=== PATIENT | female | born 1975 | race Caucasian/White ===

== ENCOUNTER 2021-02-24 09:23 | Day surgery (SDC) | payer OTHER, SELFPAY ==
--- NOTE | 2021-02-19 14:16 | EKG12_ITS ---
Test Reason : PRE OP Blood Pressure : / mmHG Vent. Rate : 090 BPM Atrial Rate : 090 BPM P-R Int : 154 ms QRS Dur : 138 ms QT Int : 376 ms P-R-T Axes : 054 144 015 degrees QTc Int : 459 ms Normal sinus rhythm Indeterminate axis Right bundle branch block Abnormal ECG Confirmed by MYRIAM TRAYLOR, FANTA ([id number]), story editor ANTONINA BARBOZA ([id number]) on 02/20/2021 1:49:08 PM Referred By: Huy Farah Confirmed By:FANTA MIGUEL MD
[2021-02-19 17:01] LABS: Hematocrit 45.6 % (37-47); Hemoglobin 14.2 g/dL (12.0-15.0); Mean Corp Hgb Conc 31.1 g/dL (32-36); Mean Corpuscular Hgb 27.4 pg (27.0-32.0); Mean Corpuscular Volume 87.9 fL (81-99); Mean Platelet Vol. 9.7 fl (6.2-12.0); Platelet Count 351 K/mm3 (150-450); RBC Distribution Width CV 13.4 % (11.6-14.6); RBC Distribution Width SD 43.2 fl (35.1-43.9); Red Blood Count 5.19 M/mm3 (4.2-5.4); White Blood Count 11.7 K/mm3 (4.4-11.0)
[2021-02-19 17:18] LABS: International Normalized Ratio 1.1; Partial Thromboplast Time 26.1 Seconds (24.1-36.2); Prothrombin Time (Protime)PT. 13.2 SECONDS (11.7-14.9)
[2021-02-19 17:38] LABS: Internal QC Validated? YES +Cl - CLEAR BKGD; Pregnancy, Serum, hCG Quali. NEGATIVE Negative
[2021-02-19 17:39] LABS: Creatinine, Serum 0.92 mg/dL (0.55-1.02); EST Glomerular Filtration Rate 70 mL/min (>60); Est Glom Filt Rate - Afr Amer 85 mL/min (>60)
--- NOTE | 2021-02-21 13:49 | HP.PCM_ITS ---
History and Physical Date of Admission: 02/24/21 Surgical History and Physical Elba Whitaker, a 46 year old female 0 0 1 0 4, presents for RAVH/BSO on January at 11:30am. -- Chronic Left Lower Quadrant Pain, Severe Dysmenorrhea; Symptomatic Uterine Fibroids -- LLQ discomfort worsening at times. LLQ pain which began Several years. Elba claims it started gradually and has been present Worsened since July. It occurs intermittantly. It is located in the LLQ of the abdomen. Elba characterizes it to be upwards to the back. Elba characterizes the quality cramping. Elba characterizes the quality aching. Severity is moderate and very concerned; Severity is worsening; It is relieved by control pills have helped slightly with the cramping. Associated signs and symptoms are Severe cramping last 2 weeks of cycle. Additional comments are: U/S shows multiple uterine fibroids with largest on left 8.4 cm. MEDICATIONS HISTORY: Patient is also takin. Aviane 0.1 mg-20 mcg tablet, One pill by mouth once a day 2. lisinopril 20 mg tablet, One pill by mouth once a day ALLERGIES: NKDA Infections - Chicken pox childhood Illnesses - no serious past illnesses Accidents - None Hospitalizations - see surgery Review of Systems: GENERAL - Denies fever, or chills SKIN - Denies skin changes EYES - Denies visual changes EARS - Denies difficulty hearing NOSE - Denies nasal congestion or bleeding MOUTH - Denies sore throat or difficulty swallowing NECK - Denies pain or swelling RESPIRATORY - Denies shortness of breath or wheezing CARDIOVASCULAR - Denies palpitations or chest pain GASTROINTESTINAL - Denies nausea, vomiting, diarrhea, constipation GENITOURINARY - Denies dysuria, frequency of urination, incontinence of urine MUSCULOSKELETAL - Denies joint or muscle pain NEUROLOGICAL - Denies localized numbness or weakness PSYCHIATRIC - Denies depression or anxiety ENDOCRINE - Denies heat or cold intolerance, weight loss or gain HEMATO-IMMUNOLOGIC - Denies excesive bleeding with cuts SOCIAL HISTORY: Alcohol Use - drinks occasionally Smoking - denies smoking Diet - no special diet Lifestyle - moderate stress lifestyle and Exercise - minimal Seat Belt Use - always Employer - [employer] Job Description - library director Illicit Drug Use - None Sexual Activity - Spouse-Sig Other Name - Denis Spouse-Sig Other Occupation - Dispatcher for [employer] Children Name(s) - Adopted 4 children Control - Aviane OCP FAMILY HISTORY: Mother: Colon polyps and DM II. Maternal Grandmother: Colon Cancer. MENSTRUAL HISTORY: LMP Known?- YesAmount/Duration - 5 to 7 days, Regularity - Regular, Frequency - 28 days, LMP - 02/08/21, Age Onset Menarche - 11 PAST PREGNANCIES: Total Pregnancies - 1; Full Term Pregnancies - 0; Premature - 0; Abortions, Induced - 0; Abortions, Spontaneous - 0; Ectopics - 1; Multiple Births - 0; Living Children - 4 SURGICAL HISTORY: 1. Appendectomy ; - 2. cholecystectomy ; - 3. Adnoidectomy ; - 4. Tubes in ears as child ; - 5. Left Salpingectomy 07/31 ; - 6. Patch on ear drum 2014 ; - PHYSICAL EXAM BP- 132/88 Sitting, Right arm, large cuff Weight- 298.56640 lbs Height- 69 inch BMI:44.0 CONSTITUTIONAL - NAD, well nourished, and well developed SKIN - No rash, lesions, or ulcers HEENT - Normocephalic, PERRLA, EOMI NECK - No nodes, no nuchal rigidity and thyroid normal size and texture LYMPH NODES - Palpation of lymph nodes in neck and groins within normal limits LUNGS - CTA x2 without wheezes, crackles or rales CARDIAC - Regular rate and rhythm without rubs, murmurs, or gallops BREAST - No dominant masses, no tenderness, no axillary adenopathy, no nipple discharge, no skin changes ABDOMEN - Without hepatosplenomegaly, distention, masses, rebound, or guarding; normal bowel sounds; no hernias EXTREMITIES - No edema or calf tenderness NEUROLOGICAL - Cranial nerves II-XII grossly intact PSYCHIATRIC - A and O to time, place, person, mood and affect External Genitial Vagina - non-tender without lesions Urethra/Urethral Meatus - non-tender Bladder - non-tender Vagina - vaginal schuster are pink and moist without loss of rugae and no evidence of atropy Cervix - without cervical motion tenderness and has normal size and features without evident lesions Uterus - nulliparous size 5 cm & wt 70 g Adnexa - clear without massess or tenderness and exam limited by habitus ASSESSMENT/PLAN: 1. Abdominal Pain,LLQ and Uterine Leiomyoma Unspec Fibroids that are large and symptomatic. Discussed treatment options and patient desires hysterectomy. We discussed options for hysterectomy including proceeding with robotic assisted vaginal hysterectomy versus laparotomy. Patient understands that it may be necessary to proceed with laparotomy should robotic surgery be unsuccessful. She understands that this would increase operative time, postoperative recovery time. Plan to proceed with RAVH/BSO. All questions were answered.
[2021-02-24] VITALS (12 sets, daily range): BP systolic 138–184; BP diastolic 85–95; PULSE 66–94; RESP 16; TEMP 36.1–37.1; O2SAT 98–100; BMI 44.0
[2021-02-24] MEDS: Gabapentin 600 MG Tablet PO (09:30)
[2021-02-24] MEDS: Lactated Ringers 1,000 ML 40 ML IV (10:05)
[2021-02-24] MEDS: Acetaminophen 500 MG Tablet 1000 MG PO ×2 (10:06→18:57)
--- NOTE | 2021-02-24 10:15 | SUR.PREOP ---
pt refused urine preg
[2021-02-24 10:41] LABS: Bedside Glucose 93 mg/dL (70-110)
--- NOTE | 2021-02-24 11:30 | HYST_PTH ---
PATIENT: ISHMAEL ABARCA LOC: [facility] [place] U#:[id number] AGE/SX: 46/F ROOM: RE02/24/[address]: Dr. Huy Farah MD : [id number] BED: DIS: 02/24/2021 SPEC #: [id number] RECD: 02/24/21 15:38 STATUS: ABI ZAMORANO #: [id number] VIV: 02/24/21 11:[address]: Huy Farah DEPT: SURGICAL PATHOLOGY RECD BY: Riana Denny ENTERED: 02/25/21 08:46 SP TYPE: HYSTERECT OTHR DR: Dr. Wade Kapoor MD Tissues: Uterus, NOS Procedures: Surgery Specimen Level V HEADER OPERATION: ERAS, robotic assisted vaginal hysterectomy, bilateral salpingo-oophorectomy PRE-OP DIAGNOSIS: Abdominal pain, LLQ and uterine leiomyoma TISSUE SUBMITTED: Cervix, uterus, bilateral fallopian tubes and ovaries MICROSCOPIC DIAGNOSIS Uterus, hysterectomy: Cervix ? minimal chronic inflammation and nabothian cysts. Endometrium ? proliferative endometrium. Myometrium ? leiomyomas. Right and left ovaries ? benign follicular cysts, corpus luteal cysts and corpora albicantia. Right and left fallopian tubes ? hemosalpiinx and hydrosalpinx. AM:yessi 02/26/2021 MICROSCOPIC DESCRIPTION Slides are reviewed. GROSS DESCRIPTION Received in fixative is one container labeled with the patient's name and designated uterus. The specimen consists of a morcellated uterus received in greater than 15 fragments and in aggregate weight 262 gm. The ectocervical fragment measures 4 cm in length and 2.5 cm in diameter. No mass lesions are seen. The endocervical segment measures 3 cm in length and is grossly unremarkable. Due to fragmentation, a distinct endometrial cavity is not identified. Multiple rubbery nodules and fragments of nodules are present in the container ranging in size from 1.5 to 6 cm. Serial sections of nodules reveal a whorled cut surface without areas of cyst formation or necrosis. The fallopian tubes and ovaries are attached to the largest fragment. The fallopian tubes are light hobson-yellow in color and similar in appearance. One ovary measures 3.5 x 2 x 1.5 cm. Serial sections of this ovary reveal a single fluid filled cyst measuring 5 mm. The other ovary measures 3 x 2 x 1.5 cm. Serial sections of this ovary reveal a single blood filled cyst measuring 2 cm in greatest dimension. The adjacent fallopian tube measures 6 cm in length and 0.4 cm in average diameter. A distinct femoral end is not identified. Drop Worker sections are submitted in ten cassettes as follows: 1 - ecto- and endocervix, 2-4 - endometrium and adjacent myometrium, 5 - largest myometrial nodule, 6 - second largest myometrial nodule, 7 - third largest myometrial nodule, 8 & 9 - one fallopian tube and adjacent ovary and paratubal cyst, 10 - the other ovary and fallopian tube. / AM:yessi 02/25/21 TC:1 CPT: 56099
[2021-02-24] MEDS: Ropivacaine 0.5% 30 ML Vial (12:13)
--- NOTE | 2021-02-24 14:53 | PCM.OPRPT ---
Report of Operation Date of Procedure: 02/24/21 Pre-Operative Diagnosis: Symptomatic Uterine Fibroids, Menorrhagia Post-Operative Diagnosis: Symptomatic Uterine Fibroids, Menorrhagia, Right Tubal Cyst Surgery/Procedure Performed:: Robotic assisted vaginal hysterectomy And Bilateral Salpingo-Oophorectomy Description of Surgical Findings:: 8 cm uterus with normal ovaries. 4 cm right fallopian tube cyst. 8 cm left fundal fibroid. Surgeon: Huy Farah branch service specialist: Jesse Manjarrez branch service specialist: Brittney Amaya Type of Anesthesia: General (Endotracheal) Anesthesiologist: Char Robles Specimen's removed: Uterus and bilateral fallopian tubes and ovaries Drains: Quick to straight drain Estimated Blood Loss (mL): 100 cc Fluids Replaced: Crystalloid Description of Procedure: Surgeon: Huy Farah MD, FACOG Indication: This is a 46 year old patient who has been having problems with symptomatic uterine fibroids and menorrhagia. Conservative measures have not been helpful. The patient has been counseled regarding the risks, benefits and alternatives of this procedure including the possibility of bleeding, infection, and injury to surrounding structures such as bowel bladder and all questions were answered. She understands that if BSO is needed that she may need to be on HRT for an indefinite period of time. Procedure: Pt taken to the operating room where, after induction of general anesthesia, the patient was prepped and draped in the usual sterile fashion and placed on a non-slip Huggy-u-vac device. Trendelenburg test was satisfactory. Bladder was drained of urine with a Quick catheter which was left in place. Anterior cervix grasped and cervix was dilated to about 3-4 mm. Uterus sounded to 9 cms. 0-Vicryl suture was placed at the 3:00 and 9:00 position of the cervix. A small [employer] Receptionist Uterine Manipulator was then placed in the uterus and attention was turned to the laparoscopic portion of the procedure. Ropivocaine 0.5% was injected approximately 2-3 cm superior to the umbilicus and an 8 mm robotic camera port was introduced directly with intraperitoneal placement confirmed with CO2 insufflation. 8 mm robotic side ports were introduced under direct visualization approximately 11 cm lateral and 2 cm inferior to the umbilical port. A 5 mm left upper quadrant port was introduced and airseal insufflation with CO2 was started. The above findings were noted. Robot was docked without difficulty and attention turned to the robotic portion of the procedure. Approximately 30 cc of Ropivicaine was used. Bilateral infundibulopelvic ligaments and mesosalpinx were ligated with 35 jeffrey bipolar coagulation to the level of the round ligament. The left salpinx was densely adhered to the left pelvic sidewall and was taken down with sharp and blunt dissection. The right fallopian tube was approximately 4 cm with a cyst present. This was drained to allow easier removal of the tube. The posterior aspect of the cervix was identified and then opened for about 1 cm using 25 watt monopolar cautery identifying the uterine manipulating device which had been placed vaginally. Bladder flap was opened and divided to the level of the round ligaments using monopolar cautery. Progressive bites were then ligated on each side of the cervix with 35 jeffrey bipolar cautery to the uterine arteries. The anterior vaginal mucosa was entered and cervix circumscribed with monopolar cautery. Uterus and attached tubes and ovaries were removed through the vagina in pieces. This added about 1 hour to the procedure. It was necessary to undocked the robot in order to remove the uterus through the vagina with a large fibroid. After it was removed the robot was redocked and vaginal cuff was closed first with 0-Vicryl Zoran stitches placed at each angle followed by closure of the mid-cuff with 0-Monocryl V-lock suture in two layers. Pelvis was copiously irrigated with saline and the right ureter was noted to peristalse. Demian was placed across the vaginal cuff to help with postoperative hemostasis. Robot was undocked and trocars were removed with as much gas as possible. Incisions were closed with 4-0 Monocryl subcuticular sutures and incisions covered with steri-strips. The patient tolerated the procedure well and was taken to the recovery room in satisfactory condition. Sponge, instruments and needle counts were all correct. There were no apparent complications of the surgery. Cefotan 3 gms IV was given prior to the procedure. Estimated Blood Loss: 50 cc Specimen to Pathology: Uterus and bilateral fallopian tubes and ovaries Complications None Admit VTE Documentation VTE Present on Admission: Yes VTE Mechan Device Prophylaxis: SCD's
[2021-02-24] MEDS: Ondansetron 4 MG/2 ML Vial IV (14:55)
--- NOTE | 2021-02-24 15:00 | PCM.DC ---
Discharge Instructions Diet Discharge Diet: No restrictions Activity Discharge Activity: May Shower and May Take a Tub Bath May resume sexual activity in: 6 weeks (nothing in the vagina.) Lifting Restrictions: 25 pounds for 6 weeks. Additional Activity Instructions:: Nothing in the vagina for 6 weeks please; no lifting more than 20-25 lbs for 6 weeks. Use Ibuprophen 800 mg orally every 8 hours as needed for pain. Can also add Tylenol 1000 mg every 8 hours if needed for pain. If Ibuprophen and Tylenol are not effective then use the Oxycodone but keep in mind it can cause serious constipation issues. Drink lots of water. Call if bleeding more than a pad per hour. Use the colace as constipation is a big issue after this type of surgery. Steps and walking are OK. Activity is encouraged but do not over do it !! Dressing / Incision Call your doctor if your incision/area has: Continuous Slow Oozing, Sudden Increased Bleeding, Increased Pain/ Swelling, Increased Redness and Foul Smelling Discharge Call your doctor if you observe: Fever of 101 or Higher, Inability to urinate, Inability to have a bowel movement, Using more than 1 pad per hour and - (Some vaginal bleeding may be noted for up to 4-8 weeks.) Cleanse incision/area with: - (Let the soapy water run over your incision, rinse and pat dry.) Additional Dressing/Incision Instructions:: The white strips (Steri Strips) on your incisions will fall off on their own. If they fall off and it bothers you it is okay to put Band-Aids across the incisions. Follow Up Care Please Follow Up With: Huy Farah MD When: Call [phone] for an appointment to be seen in 2 weeks. Test Results: Test results from this visit will be discussed in further detail at your follow-up appointment, if applicable. Discharge Plan Admission Primary Reason for Your Visit: Robotic Vaginal Hysterectomy and Bilateral Ovary Removal Attending Provider: Huy Farah Primary Care Provider: Wade Kapoor Discharge Orders/Prescriptions Prescriptions: New docusate sodium 100 mg tablet 100 mg PO BID PRN (Reason: constipation) Qty: 60 RF: 1 oxycodone 5 mg capsule 5 mg PO Q6H PRN (Reason: pain) 7 Days Qty: 10 RF: 0 estradiol 1 mg tablet 1 mg PO DAILY Qty: 90 RF: 4 Continued lisinopril 20 mg tablet 20 mg PO DAILY RF: 0 omeprazole 20 mg Tablet,Delayed Release (Dr/Ec) 20 mg PO DAILY RF: 0 Referrals / Follow Up: Wade Kapoor MD [Primary Care Provider] - Disposition Disposition (needs filled in before D/C Order can be placed): Home, Self Care
[2021-02-24] MEDS: oxyCODONE 5 MG Tablet PO (17:11)
--- NOTE | 2021-02-24 19:03 | SUR.PHASEII ---
assumed care of pt at 1800 assist to BR for attempt to void, pt unable. does not feel urge, given more fluids, gatorade and water. Pain tolerable at 3/10 abd cramping, no nausea.
[2021-02-24] MEDS: Ketorolac 30 MG/ML Syringe IV (21:39)
[2021-02-24] MEDS: Lactated Ringers 1,000 ML 200 ML IV (21:41)
== END 2021-02-24 22:18 | disposition home or self-care (01) ==
LOC: SDC 09:25 → AC 09:25
PROVIDERS: Anesthesiology; PCP Family Medicine; Referring Provider Obstetrics & Gynecology; Visit Provider Obstetrics & Gynecology
PROC: 0UT94ZZ Resection of Uterus, Percutaneous Endoscopic Approach (ICD-10-PCS; CPT 58573; principal; 2021-02-24 11:10)
DX: D25.9 Leiomyoma of uterus, unspecified (principal); N83.6 Hematosalpinx; N70.11 Chronic salpingitis; N83.02 Follicular cyst of left ovary; N83.01 Follicular cyst of right ovary; N83.12 Corpus luteum cyst of left ovary; N83.11 Corpus luteum cyst of right ovary; N83.292 Other ovarian cyst, left side; N83.291 Other ovarian cyst, right side; N92.0 Excessive and frequent menstruation with regular cycle; I10 Essential (primary) hypertension; K21.9 Gastro-esophageal reflux disease without esophagitis; Z79.899 Other long term (current) drug therapy
CPT/HCPCS: 00840; 58573; S2900; 36415; 82565; 82962; 83735; 84703; 85027; 85610; 85730; 86850; 86900; 86901; 88307; 93005; J7120; A4216; J2405

== ENCOUNTER → 2024-09-15 | Outpatient (CLI) | payer OTHER, SELFPAY ==
[2024-09-15 15:24] LABS: Absolute Lymphocyte Count 2.33 X10^3/uL (0.83-4.51); Absolute Neutrophil Count 5.3 X10^3/uL (2.0-7.7); Basophil# 0.05 X10^3/uL; Basophil% 0.6 % (0-1); Eosinophil# 0.13 X10^3/uL; Eosinophils% 1.5 % (0-5); Hematocrit 39.4 % (37-47); Hemoglobin 12.8 g/dL (12.0-15.0); Lymphocyte # 2.33 X10^3/ul (0.83-4.51); Lymphocyte % 27.3 % (19-41); Mean Corp Hgb Conc 32.5 g/dL (32-36); Mean Corpuscular Hgb 27.5 pg (27.0-32.0); Mean Corpuscular Volume 84.7 fL (81-99); Mean Platelet Vol. 9.4 fl (6.2-12.0); Monocyte# 0.72 X10^3/uL; Monocyte% 8.4 % (0-10); NRBC Flagged by Analyzer 0 % (0-5); Neutrophil # 5.28 X10^3/uL (2.7-7.7); Neutrophil % 61.8 % (47-70); Platelet Count 306 K/mm3 (150-450); RBC Distribution Width CV 13.9 % (11.6-14.6); RBC Distribution Width SD 43.1 fl (35.1-43.9); Red Blood Count 4.65 M/mm3 (4.2-5.4); White Blood Count 8.5 K/mm3 (4.4-11.0)
[2024-09-15 18:52] LABS: EST Glomerular Filtration Rate 77 (>60); Hepatitis B Surface Antibody Nonreactive; Hepatitis B Surface Antigen Nonreactive (Nonreactive); Hepatitis C Antibody Nonreactive (Nonreactive)
[2024-09-15 18:53] LABS: Rheumatoid Factor < 10.0 IU/mL (<15)
[2024-09-15 19:05] LABS: ALB/GLOB Ratio 1.6 RATIO (0.9-2.4); AST(SGOT) 23 U/L (<=31); Alanine Aminotransfer ALT/SGPT 18 U/L (<=34); Albumin, Serum 4.3 g/dL (3.5-5.0); Alkaline Phosphatase 56 U/L (35-104); Anion Gap 12 (5-15); BUN 15 mg/dL (4-19); BUN/Creat Ratio 16.2 RATIO (10-20); Calcium,Total 9.1 mg/dL (7.6-11.0); Carbon Dioxide 23.5 mmol/L (21.0-32.0); Chloride 106 mmol/L (98-108); Creatinine, Serum 0.93 mg/dL (0.70-1.20); Globulin 2.8 g/dL (2.2-4.2); Glucose 83 mg/dL (70-99); Potassium 4.6 mmol/L (3.3-5.1); Protein, Total 7.1 g/dL (5.9-8.4); Sodium Level 142 mmol/L (133-145); Total Bilirubin 0.21 mg/dL (0.00-1.30)
[2024-09-18 16:08] LABS: CCP IgG Antibodies 11 units (0-19)
== END | disposition home or self-care (01) ==
LOC: MTLAB 14:07
PROVIDERS: PCP Family Medicine; Referring Provider Internal Medicine Rheumatology; Visit Provider Internal Medicine Rheumatology
DX: M06.4 Inflammatory polyarthropathy (principal); M18.0 Bilateral primary osteoarthritis of first carpometacarpal joints
CPT/HCPCS: 36415; 80053; 85025; 86200; 86431; 86706; 86803; 87340